=== PATIENT | female | born 1945 | race Caucasian/White ===

== ENCOUNTER 2023-06-17 10:51 | Outpatient (CLI) | payer MEDICARE, SELFPAY | END 2023-06-17 10:52 | disposition home or self-care (01) | LOC: INJ CL 10:54 | PROVIDERS: PCP Physician Assistant; Visit Provider Family Medicine | DX: M54.16 Radiculopathy, lumbar region (principal); M51.36 Other intervertebral disc degeneration, lumbar region | CPT/HCPCS: 64483; J1100; Q9966 ==

== ENCOUNTER 2025-02-21 12:46 | Outpatient (RCR) | payer MEDICARE, SELFPAY | END 2025-06-21 23:59 | disposition home or self-care (01) | PROVIDERS: PCP Physician Assistant; Visit Provider Psychiatry & Neurology Neurology | DX: M54.50 Low back pain, unspecified (principal); Z51.89 Encounter for other specified aftercare | CPT/HCPCS: 97110; 97162 ==